=== PATIENT | male | born 1990 | race African-American/Black ===

== ENCOUNTER 2024-01-12 20:17 | Emergency (ER) | payer SELFPAY ==
[~2024-01-12] VITALS: Ht 172.7 cm; Wt 78.0 kg
[2024-01-12 20:56] VITALS: BP 123/84; PULSE 80; RESP 16; TEMP 97.8; O2SAT 97
== END 2024-01-12 21:00 | disposition left against medical advice (07) ==
LOC: ER 20:17
DX: R06.02 Shortness of breath (principal); Z53.21 Procedure and treatment not carried out due to patient leaving prior to being seen by health care provider